=== PATIENT | female | born 1985 | race Caucasian/White ===

== ENCOUNTER 2018-05-07 14:12 | Emergency (ER) | payer OTHER ==
--- NOTE | 2018-05-07 14:33 | ED Physician Documentation ---
PD HPI CHEST PAIN - Stated complaint Stated Complaint: CHEST PX - Chief complaint Chief Complaint: Cardiac - History obtained from History obtained from: Patient - History of Present Illness Timing - onset: Other (For the last 5 days she has had intermittent short lasting chest pain. It has a central pain that radiates to both sides and then up to the anterior neck and lasts about a minute or 2. It always starts at rest. Not associated with shortness of breath, dizziness or nausea. She doubts , her has had a vasectomy. She has not traveled recently and denies pedal edema or leg pain. She has no pertinent medical history. She does not know her family history very well but there was no specific heart disease that she knows of.) Review of Systems Ten Systems: 10 systems reviewed and negative Constitutional: denies: Fever, Chills Cardiac: denies: Palpitations, Pedal edema, Calf pain Respiratory: denies: Dyspnea, Cough, Hemoptysis, Wheezing GI: denies: Abdominal Pain PD PAST MEDICAL HISTORY - Past Medical History Past Medical History: Yes Psych: Depression, Anxiety - Past Surgical History Past Surgical History: No - Present Medications Home Medications: Ambulatory Orders Medication Instructions Recorded Confirmed Multivitamin-Min/Iron/FA/Vit K 05/07/18 [Multi For Her Softgel] diphenhydrAMINE [Benadryl] 05/07/18 - Allergies Allergies/Adverse Reactions: Allergies Allergy/AdvReac Type Severity Reaction Status Date / Time amoxicillin Allergy Rash Verified 05/07/18 14:38 Penicillins Allergy Rash Verified 05/07/18 14:38 - Social History Does the pt smoke?: Yes Smoking Status: Current every day smoker Does the pt drink ETOH?: No Substance Use and Type: Marijuana PD ED PE NORMAL - Vitals Vital signs reviewed: Yes - General General: Alert and oriented X 3, No acute distress (Although she is somewhat anxious) - HEENT HEENT: PERRL, EOMI - Neck Neck: Supple, no meningeal sign, No bony TTP - Cardiac Cardiac: RRR, No murmur - Respiratory Respiratory: No respiratory distress, Clear bilaterally - Abdomen Abdomen: Non tender - Extremities Extremities: No edema, No calf tenderness / cord - Neuro Neuro: Alert and oriented X 3, Normal speech Results - Vitals Vitals: Vital Signs - 24 hr 05/07/18 05/07/18 14:20 14:57 Temperature 36.7 C Heart Rate 107 H 80 Respiratory 16 15 Rate Blood Pressure 129/81 H 150/80 H O2 Saturation 98 98 Oxygen O2 Source Room air - EKG (time done) 1423 Rate: Rate (enter#) (98) Rhythm: NSR [place]: Normal Intervals: Normal [place] QRS: Normal Ischemia: Normal ST segments Computer interpretation: Agree with computer - Labs Labs: Laboratory Tests 05/07/18 05/07/18 05/07/18 14:42 14:42 14:42 WBC 10.5 RBC 4.51 Hgb 14.4 Hct 42.4 MCV 94.0 MCH 32.0 H MCHC 34.1 RDW 13.9 Plt Count 261 MPV 8.4 Neut # (Auto) 7.0 H Lymph # (Auto) 3.0 [place] # (Auto) 0.4 Eos # (Auto) 0.0 Baso # (Auto) 0.1 Absolute Nucleated RBC 0.00 Nucleated RBC % 0.0 D-Dimer < 200.0 L Sodium 137 Potassium 3.3 L Chloride 106 Carbon Dioxide 23 Anion Gap 8.0 BUN 7 Creatinine 0.7 Estimated GFR (MDRD) 95 Glucose 102 H Calcium 9.1 Total Bilirubin 1.0 AST 17 ALT 14 Alkaline Phosphatase 38 L Total Protein 7.6 Albumin 4.6 Globulin 3.0 Albumin/Globulin Ratio 1.5 Lipase 26 Ur Specific [place] Urine HCG, Qual 05/07/18 14:45 WBC RBC Hgb Hct MCV MCH MCHC RDW Plt Count MPV Neut # (Auto) Lymph # (Auto) [place] # (Auto) Eos # (Auto) Baso # (Auto) Absolute Nucleated RBC Nucleated RBC % D-Dimer Sodium Potassium Chloride Carbon Dioxide Anion Gap BUN Creatinine Estimated GFR (MDRD) Glucose Calcium Total Bilirubin AST ALT Alkaline Phosphatase Total Protein Albumin Globulin Albumin/Globulin Ratio Lipase Ur Specific [place] <=1.005 Urine HCG, Qual NEGATIVE PD MEDICAL DECISION MAKING - ED course ED course: 33-year-old woman with very episodic and atypical chest pain with normal EKG, negative biomarkers and negative d-dimer. She was reassured. - Sepsis Event Vital Signs: Vital Signs - 24 hr 05/07/18 05/07/18 14:20 14:57 Temperature 36.7 C Heart Rate 107 H 80 Respiratory 16 15 Rate Blood Pressure 129/81 H 150/80 H O2 Saturation 98 98 Oxygen O2 Source Room air Departure - Departure Clinical Impression: Chest pain Qualifiers: Chest pain type: other chest pain Qualified Code(s): R07.89 - Other chest pain ; R07.8 - Other chest pain Condition: Good Record reviewed to determine appropriate education?: Yes Instructions: ED Chest Pain NonCardiac Comments: Call your doctor to arrange a follow-up appointment, make the next available appointment. In the interim, return anytime if worse or if new symptoms develop. Your blood pressure was elevated today on check into the emergency department. This does not mean that you have hypertension, it is a common phenomenon to come to the emergency department and have elevated blood pressure. I recommend that you see your primary care physician within the week to have it rechecked when you are feeling better.
[2018-05-07 14:47] LABS: BASOPHILS # (AUTO) 0.1 10^3/uL (0.0-0.1); BASOPHILS % (AUTO) 0.7 %; EOSINOPHILS % (AUTO) 0.3 %; HGB - HEMOGLOBIN 14.4 g/dL (12.0-16.0); LYMPHOCYTES % (AUTO) 28.6 %; MEAN CORPUSCULAR HGB CONC 34.1 g/dL (32.0-36.0); MEAN PLATELET VOLUME 8.4 fL (7.9-10.8); MONOCYTES # (AUTO) 0.4 10^3/uL (0.0-1.0); MONOCYTES % (AUTO) 4.2 %; NEUTROPHILS % (AUTO) 66.2 %; PLT - PLATELET COUNT 261 10^3/uL (130-450); RED BLOOD COUNT 4.51 10^6/uL (4.20-5.40); RED CELL DISTRIBUTION WIDTH 13.9 % (12.0-15.0); WHITE BLOOD COUNT 10.5 x10^3/uL (4.8-10.8)
--- NOTE | 2018-05-07 15:03 | XRAY Report ---
Procedure Date: 05/07/2018 Accession Number: [id number] / [id number] Procedure: XR - Chest 2 View X-Ray CPT Code: 85832 FULL RESULT: EXAM: CHEST RADIOGRAPHY EXAM DATE: 05/07/2018 02:56 PM. CLINICAL HISTORY: Chest pain. COMPARISON: None. TECHNIQUE: 2 views. FINDINGS: Lungs/Pleura: No focal opacities evident. No pleural effusion. No pneumothorax. Normal volumes. Mediastinum: Heart and mediastinal contours are unremarkable. Other: None. IMPRESSION: Normal 2-view chest radiography. RADIA
[2018-05-07 15:06] LABS: HCG UR QUAL NEGATIVE
[2018-05-07 15:06] LABS: ALBUMIN 4.6 g/dL (3.2-5.5); ALBUMIN/GLOBULIN RATIO 1.5 (1.0-2.2); CALCIUM 9.1 mg/dL (8.5-10.3); CREATININE 0.7 mg/dL (0.4-1.0); TOTAL PROTEIN 7.6 g/dL (6.7-8.2)
[2018-05-07 15:19] VITALS: BP 122/88
== END 2018-05-07 15:21 | disposition home or self-care (01) ==
LOC: ED 14:12
DX: R07.89 Other chest pain (principal)
CPT/HCPCS: 36415; 71046; 80053; 81025; 83690; 84484; 85025; 85379; 93005; 99283; 99284

== ENCOUNTER 2018-11-11 11:26 | Emergency (ER) | payer OTHER ==
[2018-11-11 11:44] VITALS: BP 142/87
[2018-11-11 12:07] LABS: BASOPHILS # (AUTO) 0.1 10^3/uL (0.0-0.1); BASOPHILS % (AUTO) 0.8 %; EOSINOPHILS % (AUTO) 0.1 %; HGB - HEMOGLOBIN 14.2 g/dL (12.0-16.0); LYMPHOCYTES # (AUTO) 1.7 10^3/uL (1.5-3.5); LYMPHOCYTES % (AUTO) 17.5 %; MEAN CORPUSCULAR HEMOGLOBIN 32.2 pg (27.0-31.0); MEAN CORPUSCULAR HGB CONC 34.7 g/dL (32.0-36.0); MEAN CORPUSCULAR VOLUME 92.6 fL (81.0-99.0); MEAN PLATELET VOLUME 8.7 fL (7.9-10.8); MONOCYTES # (AUTO) 0.6 10^3/uL (0.0-1.0); MONOCYTES % (AUTO) 5.7 %; NEUTROPHILS # (AUTO) 7.4 10^3/uL (1.5-6.6); NEUTROPHILS % (AUTO) 75.9 %; PLT - PLATELET COUNT 287 10^3/uL (130-450); RED BLOOD COUNT 4.42 10^6/uL (4.20-5.40); RED CELL DISTRIBUTION WIDTH 13.7 % (12.0-15.0); WHITE BLOOD COUNT 9.8 x10^3/uL (4.8-10.8)
[2018-11-11 12:13] LABS: MUDS CUTOFF CONCENTRATIONS CUTOFF CONC BELOW:
[2018-11-11 12:18] LABS: ACETAMINOPHEN < 10 ug/mL (10-30); ALBUMIN 4.8 g/dL (3.2-5.5); ALBUMIN/GLOBULIN RATIO 1.7 (1.0-2.2); ALKALINE PHOSPHATASE 38 IU/L (42-121); ALT ALANINE AMINOTRANSFERASE 12 IU/L (10-60); AST ASPARTATE AMINOTRANSFERASE 16 IU/L (10-42); BILIRUBIN,TOTAL 0.8 mg/dL (0.2-1.0); BUN - BLOOD UREA NITROGEN 5 mg/dL (6-20); CALCIUM 9.2 mg/dL (8.5-10.3); CARBON DIOXIDE - CO2 21 mmol/L (21-32); CHLORIDE 106 mmol/L (101-111); CREATININE 0.6 mg/dL (0.4-1.0); GFR - MDRD 114 (>89); GLUCOSE 115 mg/dL (70-100); LIPASE 22 U/L (22-51); SALICYLATE < 6.0 mg/dL; SODIUM 135 mmol/L (135-145); TOTAL PROTEIN 7.6 g/dL (6.7-8.2)
[2018-11-11 12:20] LABS: BILIRUBIN,URINE NEGATIVE (NEGATIVE); GLUCOSE, URINE (UA) NEGATIVE (NEGATIVE); KETONES,URINE (UA) 15 mg/dL (NEGATIVE); LEUKOCYTE ESTERASE, URINE NEGATIVE (NEGATIVE); NITRITE,URINE NEGATIVE (NEGATIVE); OCCULT BLOOD,URINE NEGATIVE (NEGATIVE); PH,URINE 5.5 PH (5.0-7.5); PROTEIN,URINE NEGATIVE (NEGATIVE); UROBILINOGEN,URINE 0.2 (NORMAL) E.U./dL (NORMAL)
[2018-11-11 12:23] LABS: CLARITY,URINE CLEAR (CLEAR)
[2018-11-11 12:24] LABS: HCG UR QUAL NEGATIVE
--- NOTE | 2018-11-11 12:29 | ED Physician Documentation ---
PD HPI MHE - Stated complaint Stated Complaint: SI - Chief complaint Chief Complaint: MHE - History obtained from History obtained from: Patient - History of Present Illness Primary symptom: Suicidal ideation Pain level max: 0 Pain level now: 0 Similar symptoms before: Diagnosis (Depression) Recently seen: Not recently seen - Additional information Additional information: 33-year-old female presents to the emergency department with worsening depression over the past 3-4 months. She states that her has been deployed that entire time and that she has had increasing suicidal thoughts during that time as well. She states she does not currently have a plan but feels like she is starting to make plans and so came in for evaluation. Had been on Lexapro in the past which worked well for her. Has not seen a counselor in several years. Has 2 children at home. She is tearful in the emergency department. Nothing makes it better or worse Review of Systems Ten Systems: 10 systems reviewed and negative Constitutional: denies: Fever, Chills Throat: denies: Sore throat GI: denies: Vomiting, Diarrhea : denies: Now EGA Skin: denies: Rash Musculoskeletal: denies: Neck pain, Back pain Neurologic: denies: Headache PD PAST MEDICAL HISTORY - Past Medical History Past Medical History: Yes Psych: Depression, Anxiety - Past Surgical History Past Surgical History: No - Present Medications Home Medications: Ambulatory Orders Medication Instructions Recorded Confirmed Multivitamin-Min/Iron/FA/Vit K 05/07/18 [Multi For Her Softgel] diphenhydrAMINE [Benadryl] 05/07/18 Bp Medication 11/11/18 Dm/Acetaminophen/Doxylamine [Vicks 236 ml PO 11/11/18 Nyquil Cold-Flu Liquid] - Allergies Allergies/Adverse Reactions: Allergies Allergy/AdvReac Type Severity Reaction Status Date / Time amoxicillin Allergy Rash Verified 11/11/18 12:22 Penicillins Allergy Rash Verified 11/11/18 12:22 - Social History Does the pt smoke?: Yes Smoking Status: Current every day smoker Does the pt drink ETOH?: No PD ED PE NORMAL - Vitals Vital signs reviewed: Yes - General General: Alert and oriented X 3, Other (tearful) - HEENT HEENT: PERRL, Moist mucous membranes, Pharynx benign - Neck Neck: Supple, no meningeal sign - Cardiac Cardiac: RRR, Strong equal pulses - Respiratory Respiratory: No respiratory distress, Clear bilaterally - Abdomen Abdomen: Soft, Non tender, Non distended - Derm Derm: Warm and dry, No rash - Extremities Extremities: No edema - Neuro Neuro: Alert and oriented X 3 - Psych Psych: Other (tearful) Results - Vitals Vitals: Vital Signs - 24 hr 11/11/18 11:32 Temperature 36.3 C L Heart Rate 90 Respiratory 20 Rate Blood Pressure 142/87 H O2 Saturation 97 Oxygen O2 Source Room air - Labs Labs: Laboratory Tests 11/11/18 11/11/18 11/11/18 11:53 11:53 11:53 WBC 9.8 RBC 4.42 Hgb 14.2 Hct 40.9 MCV 92.6 MCH 32.2 H MCHC 34.7 RDW 13.7 Plt Count 287 MPV 8.7 Neut # (Auto) 7.4 H Lymph # (Auto) 1.7 [place] # (Auto) 0.6 Eos # (Auto) 0.0 Baso # (Auto) 0.1 Absolute Nucleated RBC 0.00 Nucleated RBC % 0.0 Sodium 135 Potassium 3.2 L Chloride 106 Carbon Dioxide 21 Anion Gap 8.0 BUN 5 L Creatinine 0.6 Estimated GFR (MDRD) 114 Glucose 115 H Calcium 9.2 Total Bilirubin 0.8 AST 16 ALT 12 Alkaline Phosphatase 38 L Total Protein 7.6 Albumin 4.8 Globulin 2.8 Albumin/Globulin Ratio 1.7 Lipase 22 TSH 0.68 Urine Color Urine Clarity Urine pH Ur Specific [place] Urine Protein Urine Glucose (UA) Urine Ketones Urine Occult Blood Urine Nitrite Urine Bilirubin Urine Urobilinogen Ur Leukocyte Esterase Ur Microscopic Review Urine Culture Comments Urine HCG, Qual Salicylates < 6.0 Urine Opiates Screen Ur Oxycodone Screen Urine Methadone Screen Ur Propoxyphene Screen Acetaminophen < 10 L Ur Barbiturates Screen Ur Tricyclics Screen Ur Phencyclidine Scrn Ur Amphetamine Screen U Methamphetamines Scrn U Benzodiazepines Scrn Urine Cocaine Screen U Cannabinoids Screen Ethyl Alcohol < 5.0 11/11/18 11/11/18 12:04 12:04 WBC RBC Hgb Hct MCV MCH MCHC RDW Plt Count MPV Neut # (Auto) Lymph # (Auto) [place] # (Auto) Eos # (Auto) Baso # (Auto) Absolute Nucleated RBC Nucleated RBC % Sodium Potassium Chloride Carbon Dioxide Anion Gap BUN Creatinine Estimated GFR (MDRD) Glucose Calcium Total Bilirubin AST ALT Alkaline Phosphatase Total Protein Albumin Globulin Albumin/Globulin Ratio Lipase TSH Urine Color YELLOW Urine Clarity CLEAR Urine pH 5.5 Ur Specific [place] 1.010 1.010 Urine Protein NEGATIVE Urine Glucose (UA) NEGATIVE Urine Ketones 15 H Urine Occult Blood NEGATIVE Urine Nitrite NEGATIVE Urine Bilirubin NEGATIVE Urine Urobilinogen 0.2 (NORMAL) Ur Leukocyte Esterase NEGATIVE Ur Microscopic Review NOT INDICATED Urine Culture Comments NOT INDICATED Urine HCG, Qual NEGATIVE Salicylates Urine Opiates Screen NEGATIVE Ur Oxycodone Screen NEGATIVE Urine Methadone Screen NEGATIVE Ur Propoxyphene Screen NEGATIVE Acetaminophen Ur Barbiturates Screen NEGATIVE Ur Tricyclics Screen NEGATIVE Ur Phencyclidine Scrn NEGATIVE Ur Amphetamine Screen NEGATIVE U Methamphetamines Scrn NEGATIVE U Benzodiazepines Scrn NEGATIVE Urine Cocaine Screen NEGATIVE U Cannabinoids Screen NEGATIVE Ethyl Alcohol PD MEDICAL DECISION MAKING - ED course Complexity details: reviewed results, re-evaluated patient, considered differential, d/w patient ED course: 33-year-old female with depression and suicidal ideation. No active plan at this point. Medically cleared for psychiatric care. Social work consulted. Social work evaluated the patient and was able to create a safety plan with the patient. She will follow-up with her doctor tomorrow to start counseling and be restarted on medications. She is able to contract for safety at this time. Patient counseled regarding signs and symptoms for which I believe and urgent re-evaluation would be necessary. Patient with good understanding of and agreement to plan and is comfortable going home at this time This document was made in part using voice recognition software. While efforts are made to proofread this document, sound alike and grammatical errors may occur. Departure - Departure Disposition: 01 Home, Self Care Clinical Impression: Depression Qualifiers: Depression Type: unspecified Qualified Code(s): F32.9 - Major depressive disorder, single episode, unspecified Condition: Good Instructions: ED Stress React, ED Depression Follow-Up: RESHMA BANKS [Primary Care Provider] - Within 3 Days Comments: Return if you worsen. Follow up with your doctor for further care and for medications. Follow up with one as instructed by Efrain from social work today. Crisis Line and is available to talk to someone [email or web address] is also available to chat with someone online if you prefer. There are also many resources on this website and apps for your phone to help with your mental health You can also text the word START to [phone] to chat with someome via text. Discharge Date/Time: 11/11/18 15:20
[2018-11-11 12:34] LABS: AMPHETAMINE SCREEN,URINE NEGATIVE (NEGATIVE); BENZODIAZEPINES SCREEN, URINE NEGATIVE (NEGATIVE); COCAINE SCREEN URINE NEGATIVE (NEGATIVE); METHADONE SCREEN, URINE NEGATIVE (NEGATIVE); METHAMPHETAMINES SCREEN, URINE NEGATIVE (NEGATIVE); OPIATE SCREEN, URINE NEGATIVE (NEGATIVE); OXYCODONE SCREEN, URINE NEGATIVE (NEGATIVE); PROPOXYPHENE SCREEN, URINE NEGATIVE (NEGATIVE); TRICYCLIC ANTIDEPRESSANT,URINE NEGATIVE (NEGATIVE)
== END 2018-11-11 15:20 | disposition home or self-care (01) ==
LOC: ED 11:26
DX: F32.9 Major depressive disorder, single episode, unspecified (principal); F17.200 Nicotine dependence, unspecified, uncomplicated
CPT/HCPCS: 36415; 80053; 80306; 80307; 80320; 80329; 81001; 81003; 81025; 83690; 84443; 85025; 87086; 99283

== ENCOUNTER 2018-11-12 10:19 | Emergency (ER) | payer OTHER ==
[2018-11-12 10:36] VITALS: BP 131/86
== END 2018-11-12 10:38 | disposition left against medical advice (07) ==
LOC: ED 10:19
DX: R45.851 Suicidal ideations (principal); Z53.21 Procedure and treatment not carried out due to patient leaving prior to being seen by health care provider

== ENCOUNTER 2019-08-28 11:29 | Emergency (ER) | payer OTHER ==
[2019-08-28 11:36] VITALS: BP 134/79
[2019-08-28] MEDS ORDERED: CLINDAMYCIN 150 MG CAPSULE PO STA (13:12)
--- NOTE | 2019-08-28 13:13 | ED Physician Documentation ---
History of Present Illness - Stated complaint Stated Complaint: FEM - Chief complaint Chief Complaint: General - History obtained from History obtained from: Patient - History of Present Illness Timing: How many weeks ago (2) Pain level max: 2 Pain level now: 1 - Additonal information Additional information: 34-year-old female presents to the emergency department stating that she has a small "pimple" near her rectum. Noticed a few days ago. No drainage. Nothing makes it better or worse. Review of Systems Constitutional: denies: Fever, Chills GI: denies: Vomiting Skin: denies: Rash Musculoskeletal: denies: Neck pain, Back pain Neurologic: denies: Headache PD PAST MEDICAL HISTORY - Past Medical History Past Medical History: Yes Cardiovascular: Hypertension Psych: Depression, Anxiety - Past Surgical History Past Surgical History: No - Present Medications Home Medications: Ambulatory Orders Medication Instructions Recorded Confirmed Clindamycin HCl [Clindamycin 300MG 300 mg PO Q6H #40 capsule 08/28/19 CAP] - Allergies Allergies/Adverse Reactions: Allergies Allergy/AdvReac Type Severity Reaction Status Date / Time amoxicillin Allergy Rash Verified 08/28/19 11:36 Penicillins Allergy Rash Verified 08/28/19 11:36 - Social History Does the pt smoke?: Yes Smoking Status: Current every day smoker Does the pt drink ETOH?: No Does the pt have substance abuse?: No - Immunizations Immunizations are current?: Yes PD ED PE NORMAL - Vitals Vital signs reviewed: Yes - General General: Alert and oriented X 3, No acute distress - HEENT HEENT: Moist mucous membranes - Neck Neck: Supple, no meningeal sign - Rectal Rectal: Other (Ritu Cordero RN relief manager - Rectal exam shows small noninflamed hemorrhoids. There is a very small 0.1 cm abscess near the 12 o clock position of the anus. No pain on internal examination.) - Derm Derm: Warm and dry - Neuro Neuro: Alert and oriented X 3 Results - Vitals Vitals: Vital Signs - 24 hr 08/28/19 11:34 Temperature 37.2 C Heart Rate 95 Respiratory 14 Rate Blood Pressure 134/79 H O2 Saturation 100 Oxygen O2 Source Room air PD MEDICAL DECISION MAKING - ED course Complexity details: considered differential, d/w patient ED course: Patient with a very small abscess 0.1cm, no perirectal abscess. No pilonidal cyst. We will place on antibiotics and have her follow-up with her doctor for further care. Patient counseled regarding signs and symptoms for which I believe and urgent re-evaluation would be necessary. Patient with good understanding of and agreement to plan and is comfortable going home at this time This document was made in part using voice recognition software. While efforts are made to proofread this document, sound alike and grammatical errors may occur. Departure - Departure Disposition: 01 Home, Self Care Clinical Impression: Abscess Condition: Good Instructions: ED Staph Infec Abx Tx Only Follow-Up: your,doctor in 3 days for wound check [Other] Prescriptions: Clindamycin HCl [Clindamycin 300MG CAP] 300 mg PO Q6H #40 capsule Comments: Take all antibiotics until gone. Return if you worsen. Follow-up with your doctor for a wound check in 3 days. You can also use warm sits baths 2-3 times a day to help this drain. Discharge Date/Time: 08/28/19 13:20
== END 2019-08-28 13:20 | disposition home or self-care (01) ==
LOC: ED 11:29
DX: K61.0 Anal abscess (principal); K64.9 Unspecified hemorrhoids; I10 Essential (primary) hypertension; F17.200 Nicotine dependence, unspecified, uncomplicated
CPT/HCPCS: 99282; A9270

== ENCOUNTER 2019-09-21 10:34 | Emergency (ER) | payer OTHER ==
[2019-09-21 10:51] VITALS: BP 125/83
--- NOTE | 2019-09-21 11:36 | ED Physician Documentation ---
History of Present Illness - Stated complaint Stated Complaint: FEMALE - Chief complaint Chief Complaint: General - History obtained from History obtained from: Patient - History of Present Illness Timing: How many weeks ago (3) Severity Comments: mild Quality: mild drainage from her rectum Radiates to: none Improved by: nothing Worsened by: nothing Associated symptoms: denies fever, abdominal pain, nausea or vomiting or rectal bleeding, denies pain with bowel movements - Treatment prior to arrival Treatment prior to arrival: none - Additonal information Additional information: Pt states she was seen on Aug 28 and diagnosed with a perianal abscess and had it drained, started on antibiotics and states she still feels something there and thought she saw some purulent drainage in her underwear today and thought she might have a recurrent abscess. Denies pain with bowel movements or rectal bleeding. Denies fever. Review of Systems Ten Systems: 10 systems reviewed and negative Constitutional: reports: Reviewed and negative Cardiac: reports: Reviewed and negative Respiratory: reports: Reviewed and negative GI: reports: Reviewed and negative : reports: Reviewed and negative Skin: reports: Reviewed and negative Neurologic: reports: Reviewed and negative Immunocompromised: reports: Reviewed and negative PD PAST MEDICAL HISTORY - Past Medical History Past Medical History: Yes Cardiovascular: Hypertension Psych: Depression, Anxiety - Past Surgical History Past Surgical History: No - Allergies Allergies/Adverse Reactions: Allergies Allergy/AdvReac Type Severity Reaction Status Date / Time amoxicillin Allergy Rash Verified 09/21/19 10:46 Penicillins Allergy Rash Verified 09/21/19 10:46 - Social History Does the pt smoke?: Yes Smoking Status: Current every day smoker Does the pt drink ETOH?: No Does the pt have substance abuse?: No - Immunizations Immunizations are current?: Yes PD ED PE NORMAL - Vitals Vital signs reviewed: Yes - General General: Alert and oriented X 3, No acute distress, Well developed/nourished - HEENT HEENT: Atraumatic, Moist mucous membranes - Neck Neck: Supple, no meningeal sign - Cardiac Cardiac: RRR - Respiratory Respiratory: No respiratory distress - Abdomen Abdomen: Soft, Non tender, Non distended - Derm Derm: Normal color, Warm and dry, No rash, Other (no abscess or cellulitis ) - Extremities Extremities: No deformity, No edema - Neuro Neuro: Alert and oriented X 3, Normal speech Eye Opening: Spontaneous Motor: Obeys Commands Verbal: Oriented GCS Score: 15 - Psych Psych: Normal mood, Normal affect PD ED PE EXPANDED - Female Female : Normal external, Normal exam, Other (normal appearing vagina, no bleeding or discharge ) - Rectal Rectal: Hemorrhoid (external hemorrhoids present, nontender, no bleeding, normal rectal exam, no tenderness, no fissures), Normal Tone, Outdoor Studies Professor present Results - Vitals Vitals: Oxygen O2 Source Room air PD MEDICAL DECISION MAKING - ED course Complexity details: considered differential, d/w patient ED course: ddx- anal abscess, rectal abscess, perinanal abscess, perirectal abscess, anal fissure, hemorrhoids, thrombosed hemorroid, cellulitis, bartholin's gland abscess 34 y/o F with hx and exam as documented, Normal exam except for external hemorrhoids., no evidcence of abscess or cellulitis or rectal tenderness to suggest fissure or abscess. Suspect her sypotms are due to her hemorrhoids. Regardless pt is stable for discharge with outpt f/u. Advised her to continue sitz baths and outpt f/u Departure - Departure Disposition: 01 Home, Self Care Clinical Impression: Hemorrhoids Qualifiers: Hemorrhoid type: unspecified Qualified Code(s): K64.9 - Unspecified hemorrhoids Condition: Stable Record reviewed to determine appropriate education?: Yes Instructions: ED Hemorrhoids Follow-Up: your, doctor [Other] Comments: Your examination today was normal except for some hemorrhoids. I do not see any signs of an abscess either externally or internally on your rectal exam. You may have had an infection that resolved or this may be due to your hemorrhoids. You can use sitz baths and preparation H for your symptoms. Discharge Date/Time: 09/21/19 11:49
== END 2019-09-21 11:49 | disposition home or self-care (01) ==
LOC: ED 10:34
DX: K64.4 Residual hemorrhoidal skin tags (principal); F17.200 Nicotine dependence, unspecified, uncomplicated
CPT/HCPCS: 99281; 99282